=== PATIENT | female | born 1975 | race Caucasian/White ===

== ENCOUNTER 2018-10-11 09:48 | Observation (INO) | payer OTHER ==
[~2018-10-11] VITALS: Ht 162.6 cm; Wt 99.3 kg
[2018-10-11] MEDS ORDERED: PNV1TABL50 MT (12:23)
[2018-10-11] MEDS ORDERED: PNV1TABL76 MT (12:23)
== END 2018-10-11 12:25 | disposition home or self-care (01) ==
LOC: 8 EST LDRP 09:48
PROVIDERS: ADMIT Obstetrics & Gynecology Obstetrics; ATTEND Obstetrics & Gynecology Obstetrics
DX: O26.853 Spotting complicating pregnancy, third trimester (principal); Z3A.32 32 weeks gestation of pregnancy
CPT/HCPCS: 76805; 76818; 99281; G0378

== ENCOUNTER 2022-05-14 19:23 | Emergency (ER) | payer OTHER ==
[~2022-05-14] VITALS: Ht 165.1 cm; Wt 99.0 kg
[2022-05-14 19:34] VITALS: BP 142/77
== END 2022-05-15 00:18 | disposition left against medical advice (07) ==
LOC: ER 19:23
DX: Z53.21 Procedure and treatment not carried out due to patient leaving prior to being seen by health care provider (principal)